=== PATIENT | male | born 1985 | race Caucasian/White ===

== ENCOUNTER 2022-05-30 16:47 | Emergency (ER) | payer BC ==
[~2022-05-30] VITALS: Ht 188 cm; Wt 93.9 kg
--- NOTE | 2022-05-30 20:06 | EKG ---
[facility] [address] [place] [address] Signed Normal sinus rhythm with sinus arrhythmia Normal ECG No previous ECGs available Confirmed by Olive Adan MD () on 05/30/2022 8:06:15 PM Electronically Signed By: OLIVE ADAN MD 05/30/22 2006 PATIENT NAME: DAY ISSA V Electrocardiogram DATE OF : 83 PHYSICIAN: OLIVE ADAN MD REPORT #: [id number] REPORT IS CONFIDENTIAL AND NOT TO BE RELEASED WITHOUT AUTHORIZATION
== END 2022-05-30 19:10 | disposition home or self-care (01) ==
LOC: ED 16:47
DX: R07.89 Other chest pain (principal); R10.10 Upper abdominal pain, unspecified
CPT/HCPCS: 36415; 71045; 80053; 83735; 84484; 85025; 93005; 93010; 99285-25